=== PATIENT | female | born 1955 ===

== ENCOUNTER 2022-05-19 18:23 | Emergency (ER) | payer SELFPAY ==
[2022-05-19 18:31] VITALS: BP 136/86; PULSE 117; RESP 21; TEMP 36.4; O2SAT 96; BMI 36.3
--- NOTE | 2022-05-19 19:05 | ED_ITS ---
HPI - General Adult General Chief complaint: Abdominal Pain Stated complaint: Headache, cough, Fever, Tingliness in feet Time Seen by Provider: 05/19/22 19:00 History of Present Illness HPI narrative: This 66-year-old female comes in reporting generalized malaise with cough and report of fever. She arrives with normal temperature but does have increased heart rate. She is maintaining sufficient oximetry at 96% on room air. She is slightly tachypneic. A family member recently had COVID. Related Data Previous Rx's Medication Instructions Recorded acetaminophen 300 mg-codeine 30 mg 1 tab PO Q6H PRN pain #20 tabs 05/19/22 tablet Allergies Allergy/AdvReac Type Severity Reaction Status Date / Time No Known Drug Allergies Allergy Verified 05/19/22 18:34 Review of Systems Status of ROS: Reports: 10 or more systems reviewed and unremarkable except as noted in History and below Narrative: Constitutional: No weight gain or loss. Eyes: No discharge. No vision changes. HENT: No congestion, no sore throat, no ear pain. Cardiovascular: No chest pain, no palpitations. Respiratory: No shortness of breath, no wheezes. She reports frequent cough. Gastrointestinal: No abdominal pain, no vomiting, no diarrhea. Genitourinary: No dysuria, no hematuria. Musculoskeletal: Normal range of motion. Skin: No rashes, no pruritis. Neurological: No dizziness, weakness, sensory change, speech change. Endo/Heme/Allergies: No bruising or bleeding. No polydipsia. Pysch: no suicidality, no anxiety, no insomnia. All other systems reviewed and are negative. PFSH PFSH Social History Smoking Status: Never smoker How often do you have a drink containing alcohol: never AUDIT-C Alcohol total score: 0 Non-prescribed substance use: denies use Exam Narrative: Exam Narrative: Constitutional: Well-developed, well-nourished, no acute distress. HEENT: Normocephalic, atraumatic. Neck: Normal range of motion. Nontender. Supple. Heart: Regular. No murmurs. Tachycardia. Intact distal pulses. Lungs: Clear to auscultation. No chest discomfort. No wheezes, rhonchi, or rales. Abdomen: Normal bowel sounds. Nontender. No rebound tenderness. Genitalia: Deferred. Back: No midline tenderness. Normal range of motion. Extremities: Normal range of motion. No injury. Skin: Intact. No rash. Warm. No erythema or pallor. Neurologic: No altered sensation. No weakness. Alert and oriented. Psychiatric: No suicidality. No anxiety or depression. No insomnia. Nursing notes and vitals signs are reviewed. Const: Vital Signs, click to edit/add: Vital Signs - 24 hr 05/19/22 18:31 05/19/22 19:22 Temperature 97.5 F L 97.1 F L Pulse Rate [Pulse Oximeter] 117 H 112 H Respiratory Rate 21 20 [facility] 136/86 141/95 H Pulse Oximetry 96 97 Oxygen Delivery Me thod Room Air Room Air Course Vital Signs Vital signs: Initial Vital Signs Temperature 97.5 F L 05/19/22 18:31 Temperature Source Temporal Artery Scan 05/19/22 18:31 Pulse Rate 117 H 05/19/22 18:31 Pulse Rhythm 05/19/22 18:31 Pulse Strength 3+ Normal 05/19/22 18:31 Respiratory Rate 21 05/19/22 18:31 Blood Pressure 136/86 05/19/22 18:31 Blood Pressure Mean 102 05/19/22 18:31 Blood Pressure Position Sitting 05/19/22 18:31 Pulse Oximetry 96 05/19/22 18:31 Oxygen Delivery Method 05/19/22 18:31 Vital Signs Temperature 97.5 F L 05/19/22 18:31 Pulse Rate 117 H 05/19/22 18:31 Respiratory Rate 21 05/19/22 18:31 Blood Pressure 136/86 05/19/22 18:31 Pulse Oximetry 96 05/19/22 18:31 Oxygen Delivery Method 05/19/22 18:31 Temperature 97.1 F L 05/19/22 19:22 Pulse Rate 112 H 05/19/22 19:22 Respiratory Rate 20 05/19/22 19:22 Blood Pressure 141/95 H 05/19/22 19:22 Pulse Oximetry 97 05/19/22 19:22 Oxygen Delivery Method 05/19/22 19:22 Medical Decision Making MDM Narrative Medical decision making narrative: This patient comes in with cough and generalized malaise for the past couple days. Nasal swab is positive for COVID. She does have normal vital signs except for a bit of tachycardia. She received a prescription for Tylenol 3. She understands that this is a virus that needs to run its course. I advised her to return if becoming short of breath or other worsening symptoms happen. Lab Data Labs: Lab Results 05/19/22 Range/Units 18:35 SARS-CoV-2 (PCR) POSITIVE SARS-CoV-2 A (Negative) Influenza Type A (PCR) Negative PCR FLU A (Negative) Influenza Type B (PCR) Negative PCR FLU B (Negative) RSV (PCR) Negative PCR RSV (Negative) Discharge Plan Discharge Clinical Impression: COVID-19 Patient Disposition: Home, Self-Care Condition: Stable Additional Instructions: Take medication as needed and indicated. Follow up with MD or return if worsening symptoms happen. Prescriptions: New acetaminophen-codeine 300-30 mg tablet 1 tab PO Q6H PRN (Reason: pain) Qty: 20 0RF Stand Alone Forms: [facility] Info Instructions
[2022-05-19 19:21] LABS: PCR FLU A Negative PCR FLU A (Negative); PCR FLU B Negative PCR FLU B (Negative); PCR RSV Negative PCR RSV (Negative)
[2022-05-19 19:22] VITALS: BP 141/95; PULSE 112; RESP 20; TEMP 36.2; O2SAT 97
[2022-05-19 19:22] LABS: SARS PCR* POSITIVE SARS-CoV-2 (Negative)
== END 2022-05-19 20:28 | disposition home or self-care (01) ==
LOC: ED 20:25
PROVIDERS: Emergency Provider Emergency Medicine Emergency Medical Services
DX: U07.1 COVID-19 (principal)
CPT/HCPCS: 87502; 87634; 87635; 99283; 99284

== ENCOUNTER 2022-05-20 16:18 | Emergency (ER) | payer SELFPAY ==
[2022-05-20 17:01] VITALS: BP 134/99; PULSE 108; TEMP 36.5; O2SAT 97; BMI 37.0
[2022-05-20 17:30] VITALS: BP 135/80; PULSE 97; RESP 20; O2SAT 94
--- NOTE | 2022-05-20 17:43 | ED.GENADULT ---
HPI - General Adult General Date Seen: 05/20/22 Chief complaint: Nausea/Vomiting Stated complaint: Covid+, Pain in shoulders and abdomin Time Seen by Provider: 05/20/22 16:51 Source: patient Mode of arrival: ambulatory Limitations: no limitations History of Present Illness HPI narrative: Patient is a 66-year-old female presents here for evaluation of chest discomfort abdominal discomfort and nausea vomiting, she was seen yesterday for being COVID positive, prescribed Tylenol with codeine, took 1 pill and developed nausea vomiting with some chest discomfort, there is some radiation to her left shoulder with this. She presents now for this problem she said before that she did not have any chest pain, no radiating problems denies a fevers chills, she is on no chronic medications, she has no known allergies no past history of any heart problems DVTs pulmonary emboli, denies any leg swelling, any pleuritic pain associated with this. This is is been going on for the last 2 hours after she took the medication Related Data Previous Rx's Medication Instructions Recorded acetaminophen 300 mg-codeine 30 mg 1 tab PO Q6H PRN pain #20 tabs 05/19/22 tablet nirmatrelvir 300 mg (150 mg See Rx Instructions PO .COMPLEX 05/20/22 x2)-ritonavir 100 mg tablet,dose #30 ea pack(EUA) (Paxlovid) Allergies Allergy/AdvReac Type Severity Reaction Status Date / Time No Known Drug Allergies Allergy Verified 05/20/22 19:07 Review of Systems Status of ROS: Reports: 10 or more systems reviewed and unremarkable except as noted in History and below PFSH PFSH Social History Smoking Status: Never smoker How often do you have a drink containing alcohol: never AUDIT-C Alcohol total score: 0 Non-prescribed substance use: denies use Exam Narrative: Exam Narrative: Patient is seen in room 1, she appears to be no and distress, she is seen with an shift coordinator, pupils are equal round reactive to light there is no scleral icterus redness to her TMs are normal, oropharynx is normal her neck is supple full range of motion is elicited there is no lymphadenopathy, chest shows good air entry bilaterally, no wheezing crackles noted no signs of respiratory distress, she has a moderate kyphosis, heart sounds no clicks murmurs or gallops, there is no tenderness to palpation, her abdomen is soft, there is no guarding no organomegaly bowel sounds are normal, no CVA tenderness, she moves all extremities independently and well. Const: Vital Signs, click to edit/add: Vital Signs - 24 hr 05/20/22 17:01 05/20/22 17:30 05/20/22 19:30 Temperature 97.7 F Pulse Rate [Pulse Oximeter] 108 H 97 74 Respiratory Rate 20 Blood Pressure [Ri ght Upper Arm] 134/99 H 135/80 Pulse Oximetry 97 94 93 Oxygen Delivery Me thod Room Air Room Air Room Air Documenting provider has reviewed patient's vital signs: yes Course Course Hospital Course: Troponin is negative, but the D-dimer is elevated, we should do a chest CT with IV contrast to rule out a PE, I still think the bleeding hypothesis here is the codeine that she took with the Tylenol. She is in agreement with this. Vital Signs Vital signs: Initial Vital Signs Temperature 97.7 F 05/20/22 17:01 Temperature Source Temporal Artery Scan 05/20/22 17:01 Pulse Rate 108 H 05/20/22 17:01 Blood Pressure 134/99 H 05/20/22 17:01 Blood Pressure Mean 110 05/20/22 17:01 Blood Pressure Position Sitting 05/20/22 17:01 Pulse Oximetry 97 05/20/22 17:01 Oxygen Delivery Method 05/20/22 17:01 Vital Signs Temperature 97.7 F 05/20/22 17:01 Pulse Rate 108 H 05/20/22 17:01 Blood Pressure 134/99 H 05/20/22 17:01 Pulse Oximetry 97 05/20/22 17:01 Oxygen Delivery Method 05/20/22 17:01 Temperature 97.7 F 05/20/22 17:01 Pulse Rate 74 05/20/22 19:30 Respiratory Rate 20 05/20/22 17:30 Blood Pressure 135/80 05/20/22 17:30 Pulse Oximetry 93 05/20/22 19:30 Oxygen Delivery Method 05/20/22 19:30 Medical Decision Making MDM Narrative Medical decision making narrative: During the evaluation of this patient I considered multiple differential diagnosis is. The life-threatening differential diagnosis include coronary disease/[place], pulmonary embolism, pneumothorax, pneumonia, and aortic dissection. Other differential diagnosis included but were not limited to pericarditis, myocarditis, chest wall pain, GERD, esophageal rupture, rib fracture contusion, pleurisy, as well as other etiologies. Medical Records Medical records reviewed: Yes I reviewed the patient's medical records Lab Data Lab results reviewed: Yes I reviewed the patient's lab results Labs: Lab Results 05/20/22 05/20/22 05/20/22 Range/Units 17:55 17:55 17:55 WBC 7.49 (4.50-11.00) K/uL RBC 4.28 (4.00-5.20) m/uL Hgb 12.6 (12.0-16.0) gm/dL Hct 37.3 (33.0-51.0) % MCV 87 (80-100) fL MCH 29 (26-34) pg MCHC 34 (32-36) gm/dL RDW Coeff of [place] 13.1 (11.5-15.5) % Plt Count 192 (140-440) K/uL Neut % (Auto) 80.0 H (42.0-72.0) % Lymph % (Auto) 11.9 L (20-44) % [place] % (Auto) 6.4 (0.0-11.0) % Eos % (Auto) 0.4 (0.0-7.0) % Baso % (Auto) 0.5 (0.0-3.0) % Neut # (Auto) 6.00 (1.7-7.0) K/uL Lymph # (Auto) 0.90 (0.90-2.90) K/uL [place] # (Auto) 0.50 (0.00-0.90) K/UL Eos # (Auto) 0.03 (0.00-0.50) K/uL Baso # (Auto) 0.04 (0.00-0.30) K/uL D-Dimer Quant (PE/DVT) 1.21 H (0.00-0.50) ug/ml Sodium 136 (135-149) mmol/L Potassium 3.5 L (3.6-5.1) mmol/L Chloride 103 (96-114) mmol/L Carbon Dioxide 26 (20-32) mmol/L BUN 12 (7-30) mg/dL Creatinine 0.8 (0.5-1.5) mg/dL Estimated Creat Clear 42.32 Estimated GFR 82 ml/min Glucose 121 H (60-115) mg/dL Calcium 8.2 L (8.4-10.6) mg/dL POC Troponin I (0.01-0.04) ng/ml 05/20/22 Range/Units 17:55 WBC (4.50-11.00) K/uL RBC (4.00-5.20) m/uL Hgb (12.0-16.0) gm/dL Hct (33.0-51.0) % MCV (80-100) fL MCH (26-34) pg MCHC (32-36) gm/dL RDW Coeff of [place] (11.5-15.5) % Plt Count (140-440) K/uL Neut % (Auto) (42.0-72.0) % Lymph % (Auto) (20-44) % [place] % (Auto) (0.0-11.0) % Eos % (Auto) (0.0-7.0) % Baso % (Auto) (0.0-3.0) % Neut # (Auto) (1.7-7.0) K/uL Lymph # (Auto) (0.90-2.90) K/uL [place] # (Auto) (0.00-0.90) K/UL Eos # (Auto) (0.00-0.50) K/uL Baso # (Auto) (0.00-0.30) K/uL D-Dimer Quant (PE/DVT) (0.00-0.50) ug/ml Sodium (135-149) mmol/L Potassium (3.6-5.1) mmol/L Chloride (96-114) mmol/L Carbon Dioxide (20-32) mmol/L BUN (7-30) mg/dL Creatinine (0.5-1.5) mg/dL Estimated Creat Clear Estimated GFR ml/min Glucose (60-115) mg/dL Calcium (8.4-10.6) mg/dL POC Troponin I 0.01 (0.01-0.04) ng/ml Imaging Data CT scan - chest: Radiologist's impression: Patient: AMARIS MALAGON Facility:?[facility] Patient ID:?[id number] Site Patient ID:?[id number]. Site :?[id number] Study:?CT Chest Angio W/ 95CC ISOVUE-370 PE PROTOCOL-05/20/2022 7:22:07 PM Ordering Physician:Tan Alexandra Final Report: INDICATION: Shortness breath, COVID positive, elevated D-dimer. COMPARISON: None. TECHNIQUE: CT of the chest with 95 cc of Isovue 370 IV contrast. Coronal and sagittal reconstructions. FINDINGS: Cardiomegaly. The ascending thoracic aorta measures 3.8 cm in AP dimension. Normal caliber central pulmonary arteries. Negative for acute pulmonary embolism. No pericardial effusion. Mildly prominent mediastinal and bilateral hilar lymph nodes are likely reactive. The imaged thyroid gland is normal in appearance. No focal consolidation, pleural effusion, or pneumothorax. Mild bibasilar atelectasis. 4 mm noncalcified pulmonary nodule in the right middle lobe (series 5, image 110). 2 mm noncalcified pulmonary nodule in the lateral left apex (image 24). No central endobronchial lesion or significant bronchial wall thickening. Cholecystectomy. Mild dilation of the common bile duct likely related to post cholecystectomy state. The visualized upper abdomen is otherwise unremarkable. Mild degenerative changes of the spine. IMPRESSION: 1. Negative for acute pulmonary embolism. Cardiomegaly. 2. Noncalcified pulmonary nodules measuring up to 4 mm. Please see follow-up guidelines below. 3. Mildly prominent mediastinal and bilateral hilar lymph nodes are likely reactive. [employer] GUID[employer] - SOLID NODULES: : MULTIPLE LOW RISK - nodule less than 6 mm: No routine follow-up. - nodule 6-8 mm: CT at 3-6 months, then consider CT at 18-24 months. - nodule greater than 8 mm: CT at 3-6 months, then consider CT at 18-24 months. MULTIPLE HIGH RISK - nodule less than 6 mm: Optional CT at 12 months. - nodule 6-8 mm: CT at 3-6 months, then at 18-24 months. - nodule greater than 8 mm: CT at 3-6 months, then at 18-24 months. Please note that all CT scans at this facility use dose modulation, iterative reconstruction, and/or weight-based dosing when appropriate to reduce radiation dose to as low as reasonably achievable. Dictated by Peri Britt MD @ 05/20/2022 7:56:24 PM (Electronic Signature) ECG Data Attestation: I personally reviewed and interpreted this ECG as follows: Interpretation: EKG shows normal sinus rhythm, there is some ST wave flattening noted laterally inferiorly, follow-up EKG shows no acute findings, with no changes Discharge Plan Discharge Clinical Impression: COVID-19, Vomiting Patient Disposition: Home, Self-Care Condition: Stable Instructions: Acute Nausea and Vomiting (ED) Additional Instructions: EKGs in blood tests do not show any cardiac there is no evidence of a blood clot, we will send you home I believe that issue was the medications codeine, give you nausea medication I did send in some medication that we use for COVID, I would suggest you get this. Off work for the next 5 days. Prescriptions: New Paxlovid (EUA) 300 mg (150 mg x 2)-100 mg tablets,dose pack See Rx Instructions .ROUTE .COMPLEX Qty: 30 0RF Rx Instructions: take TWO 150 mg tablets of nirmatrelvir with ONE 100 mg tablet of ritonavir twice daily for 5 days No Action acetaminophen-codeine 300-30 mg tablet 1 tab PO Q6H PRN (Reason: pain) Qty: 20 0RF Follow Up/Referrals: Provider,Not a Local [Primary Care Provider] - Stand Alone Forms: [facility] Info Instructions
[2022-05-20 18:09] LABS: Basophils Absolute Auto 0.04 K/uL (0.00-0.30); Basophils Percent Auto 0.5 % (0.0-3.0); Eosinophils Absolute Auto 0.03 K/uL (0.00-0.50); Eosinophils Percent Auto 0.4 % (0.0-7.0); Hematocrit 37.3 % (33.0-51.0); Hemoglobin* 12.6 gm/dL (12.0-16.0); Immature Granulocytes Abs Auto 0.06 K/uL (0.00-0.30); Immature Granulocytes Pct Auto 0.8 %; Lymphocytes Percent Auto 11.9 % (20-44); Mean Corpuscular HGB Conc 34 gm/dL (32-36); Mean Corpuscular Hemoglobin 29 pg (26-34); Mean Corpuscular Volume 87 fL (80-100); Monocytes Percent Auto 6.4 % (0.0-11.0); Platelet Count* 192 K/uL (140-440); RDW Coefficient of Variation % 13.1 % (11.5-15.5); Red Blood Count 4.28 m/uL (4.00-5.20); White Blood Count* 7.49 K/uL (4.50-11.00)
[2022-05-20 18:14] LABS: Slide Review Reflex No
[2022-05-20 18:18] LABS: Troponin, Point-of-Care* 0.01 ng/ml (0.01-0.04)
[2022-05-20 18:24] LABS: Chloride* 103 mmol/L (96-114); Potassium* 3.5 mmol/L (3.6-5.1); Sodium* 136 mmol/L (135-149)
[2022-05-20 18:26] LABS: Creatinine* 0.8 mg/dL (0.5-1.5); Est. Creatinine Clearance* 42.32; Estimated Glomerular Filt Rate 82 ml/min
[2022-05-20 18:27] LABS: Blood Urea Nitrogen* 12 mg/dL (7-30); Calcium* 8.2 mg/dL (8.4-10.6); Carbon Dioxide* 26 mmol/L (20-32); D Dimer Quantitative* 1.21 ug/ml (0.00-0.50); Glucose* 121 mg/dL (60-115)
[2022-05-20] MEDS: 0.9 % SODIUM CHLORIDE 1000 ml 1,000 ML IV (18:47)
[2022-05-20] MEDS: KETOROLAC 30 MG/ML inj IVP (18:48)
[2022-05-20] MEDS: ONDANSETRON 2 MG/ML inj 4 MG IVP (18:48)
--- NOTE | 2022-05-20 19:00 | CRLHL7_ITS ---
For Patients: As a result of the Century Cures Act, medical imaging exams and procedure reports are released immediately into your electronic medical record. You may view this report before your referring provider. If you have questions, please contact your health care provider. INDICATION: Shortness breath, COVID positive, elevated D-dimer. COMPARISON: None. TECHNIQUE: CT of the chest with 95 cc of Isovue 370 IV contrast. Coronal and sagittal reconstructions. FINDINGS: Cardiomegaly. The ascending thoracic aorta measures 3.8 cm in AP dimension. Normal caliber central pulmonary arteries. Negative for acute pulmonary embolism. No pericardial effusion. Mildly prominent mediastinal and bilateral hilar lymph nodes are likely reactive. The imaged thyroid gland is normal in appearance. No focal consolidation, pleural effusion, or pneumothorax. Mild bibasilar atelectasis. 4 mm noncalcified pulmonary nodule in the right middle lobe (series 5, image 110). 2 mm noncalcified pulmonary nodule in the lateral left apex (image 24). No central endobronchial lesion or significant bronchial wall thickening. Cholecystectomy. Mild dilation of the common bile duct likely related to post cholecystectomy state. The visualized upper abdomen is otherwise unremarkable. Mild degenerative changes of the spine. IMPRESSION: 1. Negative for acute pulmonary embolism. Cardiomegaly. 2. Noncalcified pulmonary nodules measuring up to 4 mm. Please see follow-up guidelines below. 3. Mildly prominent mediastinal and bilateral hilar lymph nodes are likely reactive. [employer]UID[employer] - SOLID NODULES: : MULTIPLE LOW RISK - nodule less than 6 mm: No routine follow-up. - nodule 6-8 mm: CT at 3-6 months, then consider CT at 18-24 months. - nodule greater than 8 mm: CT at 3-6 months, then consider CT at 18-24 months. MULTIPLE HIGH RISK - nodule less than 6 mm: Optional CT at 12 months. - nodule 6-8 mm: CT at 3-6 months, then at 18-24 months. - nodule greater than 8 mm: CT at 3-6 months, then at 18-24 months. Please note that all CT scans at this facility use dose modulation, iterative reconstruction, and/or weight-based dosing when appropriate to reduce radiation dose to as low as reasonably achievable. Dictated by Peri Britt MD @ 05/20/2022 7:56:24 PM (Electronically Signed)
[2022-05-20 19:30] VITALS: PULSE 74; O2SAT 93
[2022-05-20 20:35] LABS: Troponin, Point-of-Care* 0.03 ng/ml (0.01-0.04)
== END 2022-05-20 22:15 | disposition home or self-care (01) ==
PROVIDERS: Emergency Provider Family Medicine
DX: R11.10 Vomiting, unspecified (principal); U07.1 COVID-19
CPT/HCPCS: 36415; 71260; 80048; 84484; 85025; 85379; 93005; 96374; 96375; 99284; J1885; J2405; J7030; Q9967